=== PATIENT | female | born 1995 | race Caucasian/White ===

== ENCOUNTER 2017-02-11 17:46 | Emergency (ER) | payer BC, MEDICAID ==
[~2017-02-11] VITALS: Ht 160 cm; Wt 59.5 kg
[~2017-02-11 17:46] MED LIST: ABILIFY DISCMEL10 M1 PO; CARAFATE 1GM1 G PO; DULERA1 AR1 IH; KLONOPIN WAFERS1 MG PO; MINIPRESS2 MG; NEXIUM 20MG20 MG PO; PHENERGAN25 MG RC; ULTRAM 50MG TAB50 MG PO; VENTOLIN0.09 MG IH; WELLBUTRIN XL300 M1 PO; ZOLOFT 100MG100 MG PO
[2017-02-11 18:02] VITALS: TEMP 99.4
[2017-02-11 18:39] LABS: PH 5 (5-8); SQUAMOUS EPITHELIAL 0-2 /hpf; URINE APPEARANCE Clear; URINE BACTERIA None Seen /hpf; URINE BILIRUBIN Negative (NEGATIVE); URINE BLOOD Negative (NEGATIVE); URINE COLOR Yellow; URINE GLUCOSE Negative (NEGATIVE); URINE KETONE Negative (NEGATIVE); URINE RBC 0-2 /hpf; URINE UROBILINOGEN Negative (NEGATIVE); URINE WBC 0-2 /hpf
[2017-02-11 19:31] VITALS: BP 130/80; PULSE 77
== END 2017-02-11 19:33 | disposition home or self-care (01) ==
LOC: COL.ER 17:46
PROVIDERS: Emergency Medicine
DX: R35.0 Frequency of micturition (principal); R11.0 Nausea; Z98.51 Tubal ligation status